=== PATIENT | male | born 1995 | race Caucasian/White ===

== ENCOUNTER 2020-04-16 14:49 | Emergency (ER) | payer BC, OTHER ==
[~2020-04-16] VITALS: Ht 167.6 cm; Wt 60.0 kg
[~2020-04-16 14:49] MED LIST: EMTR1TAB8 PO
[2020-04-16] MEDS ORDERED: KETOROLAC 30 MG/1 ML ONE (15:09)
[2020-04-16] MEDS ORDERED: ONDANSETRON 2MG/ML, 2ML ONE ×2 (15:09→17:53)
[2020-04-16] MEDS ORDERED: MORPHINE SULFATE 4 MG/ML, 1ML ONE ×2 (15:09→15:24)
--- NOTE | 2020-04-16 15:10 | NUR ---
Pt to room from triage. Pt reports R flank pain and hematuria x2 hours. Pt reports hx of kidney stones, states these sx are similar. Pt appears very uncomfortable, restless in bed. Pt ambulatory to bathroom and back to bed with steady gait. Urine sample obtained, labeled at bedside, walked to lab. Pt placed in gown, positioned for comfort in bed with warm blankets. Continuous oxygen and BP monitors applied, all safety measures observed.
[2020-04-16] MEDS: MORPHINE SULFATE 4 MG/ML, 1ML IVPush PRN ×2 (15:12→15:31)
[2020-04-16] MEDS ORDERED: SODIUM CHLORIDE FLUSH 10ML SYR IVF ONE (15:30)
[2020-04-16] MEDS ORDERED: ONDANSETRON 2MG/ML, 2ML IVPush ONE ×2 (15:30→18:00)
[2020-04-16] MEDS ORDERED: KETOROLAC 30 MG/1 ML IVPush ONE (15:30)
--- NOTE | 2020-04-16 15:31 | NUR ---
Pt medicated for continued 7/10 R flank pain per JUL. Pt denies other needs.
[2020-04-16 15:37] LABS: MICROSCOPIC INDICATED
[2020-04-16 15:44] LABS: BASOPHILS % (AUTO) 0 % (0-1); EOSINOPHILS % (AUTO) 0 % (1-7); LYMPHOCYTES % (AUTO) 16 % (22-44); MEAN CORPUSCULAR HEMOGLOBIN 29.7 pg (27.5-34.5); MEAN CORPUSCULAR HGB CONC 33.1 g/dL (33.2-36.2); MEAN PLATELET VOLUME 8.1 fL (7.4-10.4); MONOCYTES % (AUTO) 5 % (2-9); NEUTROPHILS % (AUTO) 79 % (42-75); PLATELET COUNT 406 x10^3/uL (130-400); RED BLOOD COUNT 4.83 x10^6/uL (4.38-5.82); RED CELL DISTRIBUTION WIDTH 14.1 % (9.4-14.8)
--- NOTE | 2020-04-16 15:44 | NUR ---
Pt reports mild relief after medications. R flank pain 5/10.
[2020-04-16 15:46] LABS: ALBUMIN 5.2 g/dL (3.4-5.0); ANION GAP 11 mmol/L (5-15); CALCIUM 9.5 mg/dL (8.5-10.1); CHLORIDE 107 mmol/L (98-107); CREATININE 1.27 mg/dL (0.7-1.3); MD NO
--- NOTE | 2020-04-16 15:51 | NUR ---
Pt reports pain 3/10 at this time. Pt denies other needs.
[2020-04-16] MEDS ORDERED: OXYcodone/APAP 5/325MG TABLET PO ONE (17:00)
[2020-04-16] MEDS ORDERED: OXYcodone/APAP 5/325MG TABLET ONE (17:13)
--- NOTE | 2020-04-16 17:16 | NUR ---
Pt medicated for continued 8/10 R flank pain. Pt denies other needs.
[2020-04-16 17:57] VITALS: BP 119/74
--- NOTE | 2020-04-16 17:57 | NUR ---
PT VOMITED X1 AND MEDICATED FOR SAME NOTED ON JUL.
--- NOTE | 2020-04-16 18:29 | NUR ---
Pt resting in bed with eyes closed, resp even and unlabored, NADN. When this RN entered room to reasses pt's nausea and readiness for dc pt woke up and states he feels pain with movement. This RN advised pt that he should fill his prescriptions and take medications as directed as well as increase oral fluid intake to assist with passing the kidney stone. Pt verbalized understanding of this. Pt provided privacy so that he may dress.
== END 2020-04-16 18:53 | disposition home or self-care (01) ==
LOC: ED 16:12
DX: N13.2 Hydronephrosis with renal and ureteral calculous obstruction (principal); F17.200 Nicotine dependence, unspecified, uncomplicated; R31.9 Hematuria, unspecified
CPT/HCPCS: 36415; 74176; 80048; 81001; 82040; 85025; 87086; 96374; 96375; 96376; 99285; J1885; J2270; J2405